=== PATIENT | female | born 1950 | race Caucasian/White ===

== ENCOUNTER → 2024-09-23 | Outpatient (CLI) | payer MEDICARE, OTHER ==
--- NOTE | 2024-09-25 15:44 | PE ---
EXAMINATION TYPE: PET CT fusion skull to thigh DATE OF EXAM: 09/23/2024 COMPARISON: No prior pertinent CT at this location. 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 Images are reviewed on the computer in the coronal, axial, and sagittal planes. Reconstructed rotating images are created on independent workstation and reviewed on the computer. A localization and attenuation correction CT is performed in conjunction with the PET scan. DLP: 199.69 mGycm SCAN: Subsequent Blood glucose: 86 mg/dL Average Mediastinum SUV: 1.7 cm Average Liver SUV: 2.3 FINDINGS: NECK: No suspicious uptake THORAX: No suspicious intrathoracic uptake ABDOMEN: No suspicious intra-abdominal uptake PELVIS: No suspicious intraperitoneal uptake OSSEOUS STRUCTURES: There is abnormal uptake within the anterior right body of C2 with an SUV of 9.4. This corresponds to the lytic lesion. Some uptake is in the right posterior lateral pars region. [place] ge 27, SUV 5.89 uptake is centrally within the spinous process may be the C4 level. Uptake centrally within the tip of the spinous process image 45, SUV 1.77. Uptake within the upper thoracic vertebral level, image 49. SUV 4.86. Some uptake is in the costovertebral level on the left image 49, SUV 3.41. Posterior left rib uptake is present, image 52. Uptake is around the left shoulder prosthesis, this can be related to the surgical intervention. There is some uptake within the mid lateral thoracic mayur tebral body, image 58 and image 60 there is marked uptake within posterior left rib, image 66, SUV 7. 99. Scattered foci of uptake are within the left sternal clavicular junction, image 66, and anterior left rib at this level image 66. Posterior medial rib uptake is present image 71 focal uptake is with in the lower thoracic level, image 83 uptake is within the sternum, image 89. Multiple additional are as of rib uptake are present bilaterally. Somewhat more intense activity is in the posterior lateral left rib, image 118, series 7.2. Spinous processes uptake is present posteriorly, image 129 intense a ctivity is within the sacral lytic lesion, image 167, 76.41. Uptake is within the medial iliac region as well. There is a focal intense activity in the anterior superior iliac spine, image 166, series 9 .69. Posterior left acetabular column has focal increased uptake image 197, SUV 7.[address]: The larger lytic lesions are readily apparent on the CT exam. Some expansile rib arlette nges are evident. COMPARISON: None IMPRESSION: 1. Extensive osseous metastasis. No areas include the right sacrum, cervical vertebral bodies, expans ile lesions within the ribs. Multiple additional foci are present within the osseous structures. 2. Metastases appear to be limited to osseous structures. No soft tissue abnormalities identified at this time. [facility], , 09/25/2024 3:42 PM
== END | disposition home or self-care (01) ==
LOC: RADPETMAIN 11:23
PROVIDERS: ATTEND Internal Medicine Hematology & Oncology
DX: C50.812 Malignant neoplasm of overlapping sites of left female breast (principal)
CPT/HCPCS: 78815; A9552